=== PATIENT | female | born 1960 | race Caucasian/White ===

== ENCOUNTER 2017-11-21 23:43 | Inpatient (IN) | END 2017-11-29 16:28 | disposition home or self-care (01) | DRG 280 ==

== ENCOUNTER 2018-10-19 11:51 | Emergency (ER) | payer BC ==
[~2018-10-19] VITALS: Ht 157.5 cm; Wt 65.0 kg
[~2018-10-19 11:51] MED LIST: ASPI-831 PO; CEPH500C PO; CLOP75TA28 PO; ISOS60TA PO; METO-335 PO
[2018-10-19 11:53] VITALS: Ht 157.5 cm; Wt 65.0 kg
--- NOTE | 2018-10-19 12:30 | ERD ---
ER Documentation Chief Complaint Chief Complaint PHIL GARCIA ONSET YESTERDAY AFTERNOON HPI This is a 58-year-old female with a past medical history of hypertension, a spontaneous coronary artery dissection and an STEMI in 2018 status post catheterization and an attempted but failed stenting who is now presenting with epigastric pain and chest pain since yesterday. The patient is a hairdresser, and she does not endorse any trauma or injury or heavy lifting or increased exertion. The patient was at work yesterday when she suddenly developed moderate burning aching epigastric pain radiating into the mid and left chest pain and into her back. She describes the pain as waxing and waning in nature, mild at first but progressively more moderate today. She describes the chest pain as an aching and pulling sensation, like somebody punched her in the chest. It is exacerbated by movement and palpation and relieved with rest. She does not endorse pleuritic pain. She does not report shortness of breath. She has not been diaphoretic. She does endorse nausea but no vomiting. She also reports lightheadedness. During this time, the patient also endorses a mild headache. She does not report vision changes. She does not have any focal deficits. She does not have any weakness or numbness or tingling to the face or extremities. The patient denies feeling sick recently. The patient denies fever or chills. The patient does not endorse neck pain. The patient denies dizziness. The room is not spinning around her. The patient does also report mild epigastric pain of unclear chronicity. The patient denies changes to bowel movements or urination. ROS All systems reviewed and are negative except as per history of present illness. Medications Home Meds Active Scripts Clopidogrel Bisulfate (Clopidogrel) 75 Mg Tablet, 75 MG PO DAILY for 30 Days, TAB Prov:CITLALI HEMPHILL MD 11/29/17 Reported Medications Hydrochlorothiazide* (Hydrochlorothiazide*) 25 Mg Tab, 1 TAB ORAL DAILY 10/19/18 Benazepril Hcl* (Benazepril Hcl*) 10 Mg Tablet, 1 TAB ORAL BID 10/19/18 Metoprolol Tartrate* (Lopressor*) 25 Mg Tablet, 1 TAB ORAL BID 10/19/18 Amlodipine Besylate* (Amlodipine Besylate*) 2.5 Mg Tablet, 1 TAB ORAL DAILY 10/19/18 Aspirin Delayed Release (Aspirin Delayed Release) 81 Mg Tablet.dr, 1 TAB ORAL DAILY 10/19/18 Discontinued Scripts Aspirin (Aspirin) 81 Mg Chew, 81 MG PO DAILY for 30 Days, TAB Prov:CITLALI HEMPHILL MD 11/29/17 Metoprolol Succinate* (Toprol XL*) 25 Mg Tab.sr.24h, 25 MG PO DAILY for 30 Days Prov:CITLALI HEMPHILL MD 11/29/17 Isosorbide Mononitrate* (Isosorbide Mononitrate*) 60 Mg Tab.er.24h, 120 MG PO DAILY for 30 Days Prov:CITLALI HEMPHILL MD 11/29/17 Cephalexin* (Cephalexin*) 500 Mg Capsule, 500 MG PO Q8 for 3 Days, CAP Prov:CITLALI HEMPHILL MD 11/29/17 Allergies Allergies: Coded Allergies: No Known Allergy (Unverified , 11/22/17) PMhx/Soc History of Surgery: Yes (Tummy tuck) Anesthesia Reaction: No Hx Neurological Disorder: No Hx Respiratory Disorders: No Hx Cardiac Disorders: Yes (HTN) Hx Psychiatric Problems: No Hx Miscellaneous Medical Probl: No Hx Alcohol Use: No Hx Substance Use: No Hx Tobacco Use: Yes FmHx Family History: No diabetes Physical Exam Vitals Vital Signs Date Temp Pulse Resp B/P (MAP) Pulse Ox O2 O2 Flow FiO2 Time Delivery Rate 10/19/18 98.7 65 18 155/71 99 11:53 (99) Physical Exam Const: No apparent distress, well-developed, well-nourished Head: Normocephalic, Atraumatic Eyes: Normal Conjunctiva. Extraocular movements intact. Pupils equal, round a nd reactive to light ENT: Normal External Ears, Nose and Mouth. Neck: Full range of motion. No meningismus. Resp: Clear to auscultation bilaterally, No wheezes, rales or rhonchi Cardio: Regular rate and rhythm. No murmurs, rubs or gallops Chest: Tenderness to palpation of the sternum and mid chest which reproduces her pain. Abd: Soft, non distended. Epigastric tenderness to palpation, mild. No g uarding or rebound. Normal bowel sounds Skin: No petechiae or rashes Back: No midline tenderness. No CVA tenderness Ext: No cyanosis, or edema Neur: Awake and alert, oriented 4. Cranial nerves intact. No facial droop. Normal strength, sensation and coordination. Psych: Anxious Result Diagram: 10/19/18 1228 10/19/18 1228 Results 24 hrs Laboratory Tests Test 10/19/18 12:28 10/19/18 15:30 White Blood Count 10.8 10^3/ul Red Blood Count 4.48 10^6/ul Hemoglobin 14.1 g/dl Hematocrit 41.5 % Mean Corpuscular Volume 92.6 fl Mean Corpuscular Hemoglobin 31.5 pg Mean Corpuscular Hemoglobin Concent 34.0 g/dl Red Cell Distribution Width 13.1 % Platelet Count 116 10^3/UL Mean Platelet Volume 10.3 fl Immature Granulocytes % 0.400 % Neutrophils % 79.6 % Lymphocytes % 10.5 % Monocytes % 8.7 % Eosinophils % 0.3 % Basophils % 0.5 % Nucleated Red Blood Cells % 0.0 /100WBC Immature Granulocytes # 0.040 10^3/ul Neutrophils # 8.6 10^3/ul Lymphocytes # 1.1 10^3/ul Monocytes # 0.9 10^3/ul Eosinophils # 0.0 10^3/ul Basophils # 0.1 10^3/ul Nucleated Red Blood Cells # 0.0 10^3/ul Prothrombin Time 13.1 Sec Prothrombin Time Ratio 1.0 INR International Normalized Ratio 0.98 Sodium Level 144 mmol/L Potassium Level 4.0 mmol/L Chloride Level 106 mmol/L Carbon Dioxide Level 29 mmol/L Anion Gap 9 Blood Urea Nitrogen 8 mg/dl Creatinine 0.46 mg/dl Est Glomerular Filtrat Rate mL/min > 60 mL/min Glucose Level 127 mg/dl Calcium Level 8.9 mg/dl Troponin I < 0.012 ng/ml < 0.012 ng/ml B-Type Natriuretic Peptide 90 PG/ML Current Medications Medications Dose Sig/Lucero Start Time Status Last (Trade) Ordered Route PRN Stop Time Admin Dose Reason Admin Diazepam 5 mg ONCE ONCE 10/19/18 DC 10/19/18 (Valium) IV 13:30 13:23 10/19/18 13:31 10 mg ONCE ONCE 10/19/18 DC 10/19/18 Metoclopramid IV 13:30 13:23 e HCl 10/19/18 13:31 (Reglan) Sodium 1,000 ml @ Q1H ONCE 10/19/18 DC 10/19/18 Chloride 1,000 mls/hr IV 13:30 13:23 10/19/18 14:29 IV Flush 10 ml STK-MED 10/19/18 DC 10/19/18 (NS 10 ml) ONCE .ROUTE 14:10 14:26 10/19/18 14:11 Sodium 100 ml @ ud STK-MED 10/19/18 DC 10/19/18 Chloride ONCE .ROUTE 14:10 14:26 10/19/18 14:11 Iohexol 100 ml @ ud STK-MED 10/19/18 DC 10/19/18 ONCE .ROUTE 14:10 14:26 10/19/18 14:11 Famotidine 20 mg ONCE STAT 10/19/18 DC (Pepcid Iv) IV 15:15 10/19/18 15:20 40 ml ONCE STAT 10/19/18 DC 10/19/18 Miscellaneous PO 15:15 15:26 Medication 10/19/18 15:20 (Gi Cocktail (2)) Belladonna/ 2 tab ONCE STAT 10/19/18 DC 10/19/18 Phenobarbital PO 15:15 15:26 () 10/19/18 15:20 Procedures/MDM MDM The patient's presentation warrants further investigation. Previous medical records, if available, were reviewed. LABS The patient's laboratory testing was obtained and reviewed. No emergent treatment was required unless described below. CBC: No E/o systemic infection or severe anemia. Mild thrombocytopenia, not emergent. Chemistry: No E/o severe acidosis or alkalosis or renal failure or liver disease or diabetic ketoacidosis PT/INR: No E/o significant coagulopathy Troponin: No E/o acute ischemia x 2 BNP: No E/o heart failure EKG EKG read by me: Rate/Rhythm: Regular rate and rhythm at a rate of 58 bpm Intervals: Normal [place]: Normal Impression: No evidence of acute ischemia or arrhythmia IMAGING Imaging and Radiology interpretation reviewed. CXR FINDINGS: Support Hardware: None Cardiovascular: The cardiovascular silhouette appears unremarkable. Lung Silva: The lung silva appear clear with no nodule, alveolar infiltrate, or interstitial prominence evident. Pleural Spaces: No pneumothorax or pleural effusion is identified. Osseous Structures: The osseous structures appear intact. Soft Tissues: The soft tissues appear unremarkable. IMPRESSION: Unremarkable portable chest. Electronically viewed and signed by Physician Arcadio on 10/19/2018 13:15 CTA Chest FINDINGS: Images through the pulmonary arteries demonstrates no evidence of large or central pulmonary emboli. Ascending and descending thoracic aorta are normal in caliber without aneurysmal dilatation or dissection. Heart chambers are normal in size. No pericardial effusion is seen. There are no pathologically enlarged mediastinal or axillary lymph nodes. Mild thickening is noted of the mid esophagus suggesting esophagitis. Correlation with endoscopy is recommended. Evaluation of the lung silva demonstrates no confluent pneumonia, pleural fluid, or pneumothorax. Minimal dependent atelectasis is seen. Underlying architecture of the lungs is normal. Bronchi are normal in caliber. No suspicious or dominant lung nodules/masses are seen. No destructive bony lesions are seen. Images through the upper abdomen demonstrate fatty change of the liver. A 1.5 cm rim calcified lesion in the posterior right hepatic lobe which is partially visualized. This likely represents old abscess or old hematoma. IMPRESSION: 1. No evidence of large or central pulmonary emboli. 2. No aortic aneurysm or dissection. 3. Lungs clear. 4. Mild circumferential thickening of the mid esophagus suspicious for esophagitis. Recommend correlation with endoscopy. 5. 1.5 cm rim calcified lesion in the posterior right hepatic lobe may represent old abscess or hematoma. 6. Fatty liver Electronically viewed and signed by .Otis Kline MD, on 10/19/2018 14:35 TREATMENT/DISPOSITION The patient presents with epigastric pain and chest pain radiating to the back. The patient was evaluated fully including with a CTA. The patient CTA reveals no evidence of pulmonary embolism or dissection or aortic aneurysm. There is evidence of esophagitis, which could be the etiology of her symptoms today. The patient's symptoms are also reproducible, so a musculoskeletal etiology is also a possibility, and I did attempt to treat with a dose of Valium, though my suspicion for esophagitis is much higher at this point. Based on the patient's past medical record, she has a history of a spontaneous coronary artery dissection which was treated conservatively in the past. I spoke with the patient's training lead who had performed the catheterization last year. He notes that if the patient's troponin is negative twice over the course of several hours, the chances of the patient's presentation being related to acute coronary syndrome or from a spontaneous dissection are very low. The patient's troponin and EKG are reassuring. The patient's repeat troponin was also negative 3 hours later. I have low suspicion for acute coronary syndrome. My suspicion for a cardiac process is very low. The patient's chest xray does not reveal pneumonia or pneumothorax or pleural effusions or pulmonary edema. The patient does not have pneumomediastinum or s igns concerning for esophageal tear or rupture. The patient has no clinical or radiographic signs of pericardial effusion or tamponade. The patient does not have pneumoperitoneum and I have decreased suspicion of viscus perforation as possible referred pain. The patient does not have a history of heart failure and I have low suspicion for this. The patient does not have a diagnosis of COPD and is not wheezing today. I do suspect that the patient's esophagitis is the etiology of her epigastric pain. She was given Pepcid and a GI cocktail with some improvement of her symptoms. The patient does not have any evidence of peritonitis. The patient does not have clinical symptoms concerning for mesenteric ischemia or ischemic colitis. The patient does not have right upper quadrant tenderness, and I have low suspicion for gallstones, cholecystitis or biliary colic. The patient does not have left upper quadrant tenderness. I have low suspicion for pancreatitis. The patient does not have any right lower quadrant tenderness, or periumbilical tenderness. I have low suspicion for appendicitis. The patient does not have suprapubic tenderness. I have decreased suspicion for cystitis. The patient does not have any left lower quadrant tenderness, and I have low suspicion for diverticulosis or diverticulitis. The patient does not have any flank tenderness. The patient does not have gross hematuria. I have decreased suspicion for nephrolithiasis or renal colic. The patient does not have any palpable pulsatile mass or severe abdominal pain radiating to the back. I have low suspicion for aortic aneurysm, dissection or rupture. DISCHARGE Upon reevaluation of the patient, symptoms have improved. No emergent diagnoses were identified. At this time, I feel that the patient stable for discharge. The patient was instructed to follow-up with a primary care physician in 1-3 days. The patient will be given strict precautions with which to return to the emergency department. Prescriptions: Zofran, Pepcid The patient's blood pressure was elevated at greater than 120/80 while in the emergency department. The patient was otherwise stable with no evidence of hypertensive urgency or emergency. The patient does not require admission for blood pressure control. I have discussed with the patient the risks of hypertension. I have instructed the patient to return to the ER for any new or worsening symptoms including chest pain, shortness of breath, headache, blurred vision, confusion, nausea, vomiting or LOC. I have advised the patient to follow up with the primary care physician for outpatient monitoring and treatment for hypertension in 1-3 days. Disclaimer: Inadvertent spelling and grammatical errors are likely due to EHR/dictation software use and do not reflect on the overall quality of patient care. Note that the electronic time recorded on this note does not necessarily reflect the actual time of the patient encounter. Departure Diagnosis: Primary Impression: Esophagitis Additional Impressions: Epigastric pain Nonspecific chest pain Thrombocytopenia Condition: Stable Patient Instructions: Epigastric Pain (Uncertain Cause), Chest Pain, Uncertain Cause ZULY FUNK MD Oct 19, 2018 12:30
[2018-10-19] MEDS ORDERED: DIAZEPAM 5 MG/ML SYG IV ONE (13:30)
[2018-10-19] MEDS ORDERED: METOCLOPRAMIDE 10 MG INJ IV ONE (13:30)
[2018-10-19] MEDS ORDERED: SOD CHLORIDE 0.9% 1,000 ML IV ONE (13:30)
[2018-10-19] MEDS ORDERED: SOD CHLORIDE 0.9% 100 ML ONE (14:10)
[2018-10-19] MEDS ORDERED: IOHEXOL 100 ML ONE (14:10)
[2018-10-19] MEDS ORDERED: AMLO2.5T78 ORAL (14:16)
[2018-10-19] MEDS ORDERED: BENA10TA4 ORAL (14:16)
[2018-10-19] MEDS ORDERED: METO25TA4 ORAL (14:16)
[2018-10-19] MEDS ORDERED: ASPI-1044 ORAL (14:16)
[2018-10-19] MEDS ORDERED: HYDR25TA6 ORAL (14:17)
[2018-10-19] MEDS ORDERED: FAMOTIDINE 20 MG INJ IV STA (15:15)
[2018-10-19] MEDS ORDERED: LIDOCAINE/MYLANTA 40 ML BTL PO STA (15:15)
[2018-10-19] MEDS ORDERED: BELLADONNA/PHENOBARBITAL TAB PO STA (15:15)
[2018-10-19] MEDS ORDERED: ONDA4TAB8 PO (16:47)
[2018-10-19] MEDS ORDERED: FAMO20TA18 PO (16:47)
[2018-10-19 17:19] VITALS: BP 136/98; PULSE 71; RESP 18
== END 2018-10-19 17:20 | disposition home or self-care (01) ==
LOC: E/R 11:51
DX: K20.9 Esophagitis, unspecified (principal); R07.9 Chest pain, unspecified; D69.6 Thrombocytopenia, unspecified; I10 Essential (primary) hypertension; Z79.82 Long term (current) use of aspirin; Z87.891 Personal history of nicotine dependence
CPT/HCPCS: 36415; 71045; 71275; 80048; 83880; 84484; 85025; 85610; 93005; 96374; 96375; J2765; J3360; J7030; Q9967; Z7502; Z7610